=== PATIENT | male | born 1970 | race Caucasian/White ===

== ENCOUNTER 2017-01-23 17:24 | Emergency (ER) | payer SELFPAY ==
--- NOTE | 2017-01-23 17:39 | DR.CP ---
HPI - Time Seen Time seen: 15:30 - PCP Primary Care Physician: SHAMIKA, - Complaint Chief Complaint Doctor Comments: I agree with statement. Patient with a strong family history of heart disease on mothers side. 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 He reports that he had mid sternal chest pain on yesterday w/o radiation or diaphoresis. Sharp and constant. He had no NTG and took ASA. Chief Complaint:: PT C/O CHEST PAINS THAT STARTED LAST NIGHT AND PT STATES THAT IT IS CONSTANT SHARP PAINS.. - Source History Provided: Patient - Mode of Arrival Mode of Arrival: Ambulatory - Timing Onset of Chief Complaint: 01/22/17 PMH - PMH Past Medical History: Yes Past Medical History: [place] Past Surgical History: Yes Surgical History: Angioplasty/Stents - Family History History of Family Medical Conditions: No Family Medical History: Diabetes Mellitus, [place], Coronary Artery Disease, Hypertension - Social History Does patient currently use any type of tobacco product: Yes Have you used tobacco products in the last 12 months: Yes Type of Tobacco Use: Cigarettes How many years tobacco product used: 32 Does any household member use tobacco: No Alcohol Use: None Do you use any recreational Drugs:: No Lives With: Family - infectious screening In the last 2 months have you had wt loss of >10#?: NO Have you had fever, night sweats or hemotysis?: No Have you traveled outside the country in the last 6 months?: No Isolation: Standard ROS - Review of Systems Eyes: No Symptoms Reported ENTM: No Symptoms Reported Respiratoy: No Symptoms Reported Cardiovascular: No Symptoms Reported Gastrointestinal/Abdominal: No Symptoms Reported Genitourinary: No Symptoms Reported Neurological: No Symptoms Reported Musculoskeletal: No Symptoms Reported Integumentary: No Symptoms Reported Hematologic/Lymphatic: No Symptoms Reported Endocrine: No Symptoms Reported Psychiatric: No Symptoms Reported All Other Systems: Reviewed and Negative PE - Vitals Vitals: Temperature 98.2 F Pulse Rate [Left Brachial] 100 Pulse Rate 93 Respiratory Rate 18 Blood Pressure [Left Arm] 137/87 Blood Pressure 125/79 O2 Sat by Pulse Oximetry 98 - General Limitations: No Limitations General Appearance: Alert, In No Apparent Distress - Head Head Exam: Normal Inspection, Atraumatic - Eyes Eye exam: Normal Appearance, PERRL, EOMI - ENT ENT Exam: Normal Exam - Chest Chest Inspection: Normal Inspection - Respiratory Respiratory Exam: Normal Lung Sounds Bilat Respiratory Exam: Bilateral Clear to Auscultation - Cardiovascular Cardiovascular Exam: Regular Rate, Normal Rhythm Pulse: Normal - Abdominal Exam Abdominal Exam: Normal Inspection, Normal Bowel Sounds, Soft Abdominal Tenderness: negative: RUQ, RLQ, LUQ, LLQ, Epigastrium, Suprapubic, Diffuse, Mild, Moderate, Severe, Other - Extremities Extremities Exam: Normal Inspection - Back Back Exam: Normal Inspection, Full ROM - Neurologic Neurological Exam: Alert, Oriented X3, CN II-XII Intact - Psychiatric Psychiatric Exam: Normal Affect - Skin Skin Exam: Warm, Dry, Intact Course - Reevaluation 1st: Improved ROR - Labs Reviewed Result Diagrams: 01/23/17 17:40 01/23/17 17:40 Laboratory: WBC 10.5 X10^3/uL (3.6-10.0) H 01/23/17 17:40 RBC 5.54 X10^6/uL (4.7-6.0) 01/23/17 17:40 Hgb 17.1 g/dL (13.5-18.0) 01/23/17 17:40 Hct 48.8 % (42.0-54.0) 01/23/17 17:40 MCV 88.1 fL (80.0-100.0) 01/23/17 17:40 MCH 30.9 pg (27.0-34.0) 01/23/17 17:40 MCHC 35.1 g/dL (33.0-35.0) H 01/23/17 17:40 RDW 15.6 % (11.6-16.5) 01/23/17 17:40 Plt Count 265 X10^3/uL (150.0-450.0) 01/23/17 17:40 MPV 8.4 fL (7.4-11.0) 01/23/17 17:40 Neut % 52.7 % (42.0-75.0) 01/23/17 17:40 Lymph % 38.7 % (21.0-51.0) 01/23/17 17:40 Lipscomb % 4.3 % (0.0-13.0) 01/23/17 17:40 Eos % 3.2 % (0.9-2.9) H 01/23/17 17:40 Baso % 1.1 % (0.2-1.0) H 01/23/17 17:40 Neut # 5.5 x10^3/uL (2.2-4.8) H 01/23/17 17:40 Lymph # 4.0 X10^3/uL (1.3-2.9) H 01/23/17 17:40 Lipscomb # 0.4 x10^3/uL (0.3-0.8) 01/23/17 17:40 Eos # 0.3 x10^3/uL (0.0-0.2) H 01/23/17 17:40 Baso # 0.1 X10^3/uL (0.0-0.1) 01/23/17 17:40 Absolute Nucleated RBC 0.0 /100WBC 01/23/17 17:40 Sodium 139 mmol/L (136-145) 01/23/17 17:40 Corrected Sodium TNP 01/23/17 17:40 Potassium 4.3 mmol/L (3.5-5.1) 01/23/17 17:40 Chloride 105 mmol/L (98-107) 01/23/17 17:40 Carbon Dioxide 29.1 mmol/L (21-32) 01/23/17 17:40 BUN 12 mg/dL (7-18) 01/23/17 17:40 Creatinine 1.34 mg/dL (0.70-1.30) H 01/23/17 17:40 Est GFR (MDRD) Af Amer > 60 (>60) 01/23/17 17:40 Est GFR (MDRD) Non-Af > 60 (>60) 01/23/17 17:40 Glucose 104 mg/dL (65-99) H 01/23/17 17:40 Calcium 9.2 mg/dL (8.5-10.1) 01/23/17 17:40 Corrected Calcium TNP 01/23/17 17:40 Magnesium 1.6 mg/dL (1.7-2.9) L 01/23/17 17:40 Total Bilirubin 0.20 mg/dL (0.2-1.0) 01/23/17 17:40 AST 16 Units/L (15-37) 01/23/17 17:40 ALT 32 Units/L (12-78) 01/23/17 17:40 Alkaline Phosphatase 76 Units/L (46-116) 01/23/17 17:40 Creatine Kinase 131 Units/L (39-308) 01/23/17 17:40 CK-MB (CK-2) < 1.0 ng/mL (0-4.0) 01/23/17 17:40 CK/CKMB % Calc 0.8 % (<4) 01/23/17 17:40 Troponin I < 0.02 ng/mL (0-1.5) 01/23/17 17:40 Total Protein 8.2 g/dL (6.4-8.2) 01/23/17 17:40 Albumin 4.1 g/dL (3.4-5.0) 01/23/17 17:40 Globulin 4.1 g/dL (2.5-4.5) 01/23/17 17:40 Albumin/Globulin Ratio 1.0 Ratio (1.1-2.1) L 01/23/17 17:40 - XRAY XRAY Interpreted by: Radiologist (Chest: There is poorly defined asymmetric opacities within the right lung base, which could represent atelectasis vs early pneumonia. The lungs are otherwise clear, and no pneumothorax or pleural effusion is present. There no cardiomegaly. Bipolar implanted pacemaker noted. No acute skeletal abnormality is identified.) - EKG Rate: 91 [place]: Normal Rhythm: NSR Hypertrophy: LAE - Diagnosis Discharge Problem: Chest pain Qualifiers: Chest pain type: unspecified Qualified Code(s): R07.9 - Chest pain, unspecified Chest pain Qualifiers: Chest pain type: unspecified Qualified Code(s): R07.9 - Chest pain, unspecified - Discharge Plan Condition: Stable - Follow ups/Referrals Follow ups/Referrals: NFD,None [Primary Care Provider] - 3 days - Instructions
[2017-01-23] MEDS: NITROSTAT SL PRN ×3 (17:45→18:03)
[2017-01-23 17:50] LABS: BASOPHILS # (AUTO) 0.1 X10^3/uL (0.0-0.1); BASOPHILS % (AUTO) 1.1 % (0.2-1.0); EOSINOPHILS # (AUTO) 0.3 x10^3/uL (0.0-0.2); EOSINOPHILS % (AUTO) 3.2 % (0.9-2.9); HEMATOCRIT 48.8 % (42.0-54.0); HEMOGLOBIN 17.1 g/dL (13.5-18.0); LYMPHOCYTES % (AUTO) 38.7 % (21.0-51.0); MEAN CORPUSCULAR HEMOGLOBIN 30.9 pg (27.0-34.0); MEAN CORPUSCULAR HGB CONC 35.1 g/dL (33.0-35.0); MEAN CORPUSCULAR VOLUME 88.1 fL (80.0-100.0); MEAN PLATELET VOLUME 8.4 fL (7.4-11.0); MONOCYTES # (AUTO) 0.4 x10^3/uL (0.3-0.8); MONOCYTES % (AUTO) 4.3 % (0.0-13.0); NEUTROPHILS # (AUTO) 5.5 x10^3/uL (2.2-4.8); NEUTROPHILS % (AUTO) 52.7 % (42.0-75.0); PLATELET COUNT 265 X10^3/uL (150.0-450.0); RED BLOOD COUNT 5.54 X10^6/uL (4.7-6.0); RED CELL DISTRIBUTION WIDTH 15.6 % (11.6-16.5); WHITE BLOOD COUNT 10.5 X10^3/uL (3.6-10.0)
--- NOTE | 2017-01-23 17:50 | RAD ---
Single view chest series: Indication: Chest pain. Comparison: None available. Findings/impression: There poorly defined, asymmetric opacities within the right lung base, which co uld represent atelectasis versus early pneumonia. The lungs are otherwise clear, and no pneumothorax or pleural effusion is present. There is no cardiomegaly. Bipolar implanted pacemaker noted. No acu te skeletal abnormality is identified. Reported By:
[2017-01-23] MEDS ORDERED: NS 1000 ML 1,000 ML IV SCH (18:00)
[2017-01-23 18:09] LABS: BLOOD UREA NITROGEN 12 mg/dL (7-18); CALCIUM 9.2 mg/dL (8.5-10.1); CARBON DIOXIDE 29.1 mmol/L (21-32); CHLORIDE 105 mmol/L (98-107); CREATININE 1.34 mg/dL (0.70-1.30); GLUCOSE 104 mg/dL (65-99); SODIUM 139 mmol/L (136-145); TROPONIN I < 0.02 ng/mL (0-1.5); eGFR BLACK RACES > 60 (>60); eGFR NON BLACK RACES > 60 (>60)
[2017-01-23 18:13] LABS: ALANINE AMINOTRANSFERASE 32 Units/L (12-78); ALBUMIN 4.1 g/dL (3.4-5.0); ALKALINE PHOSPHATASE 76 Units/L (46-116); ASPARTATE AMINO TRANSFERASE 16 Units/L (15-37); CREATINE KINASE 131 Units/L (39-308); MAGNESIUM 1.6 mg/dL (1.7-2.9); TOTAL PROTEIN 8.2 g/dL (6.4-8.2)
[2017-01-23 18:18] VITALS: BP 137/87
[2017-01-23] MEDS ORDERED: NS 1000 ML 1,000 ML ONE (18:18)
[2017-01-23] MEDS ORDERED: MORPHINE SULFATE INJ 4 MG IVP ONE (18:23)
[2017-01-23] MEDS ORDERED: MORPHINE SULFATE INJ 4 MG ONE (18:28)
[2017-01-23 18:45] LABS: CREATINE KINASE MB < 1.0 ng/mL (0-4.0)
[2017-01-23 18:46] LABS: CKMB % 0.8 % (<4)
[2017-01-23 19:47] LABS: BILIRUBIN,URINE NEGATIVE (NEGATIVE); BLOOD/HEMOGLOBIN,URINE 1+ (NEGATIVE); GLUCOSE, URINE NEGATIVE (NEGATIVE); KETONES,URINE NEGATIVE (NEGATIVE); LEUKOCYTE ESTERASE ,URINE NEGATIVE (NEGATIVE); NITRITES,URINE NEGATIVE (NEGATIVE); PROTEIN,URINE NEGATIVE (NEGATIVE); UROBILINOGEN,URINE NORMAL (NORMAL)
[2017-01-23 20:06] LABS: APPEARANCE,URINE CLEAR (CLEAR); COLOR,URINE YELLOW (YELLOW); RBC,URINE 0-2 /HPF (NEGATIVE)
[2017-01-23 20:07] LABS: BACTERIA,URINE NEGATIVE /HPF (NEGATIVE); SQUAMOUS EPITHELIAL CELL,UR RARE /HPF (NEGATIVE)
== END 2017-01-23 20:03 | disposition home or self-care (01) ==
LOC: ER 17:30
DX: R07.89 Other chest pain (principal)
CPT/HCPCS: 36415; 71010; 80053; 81001; 82550; 82553; 83735; 84484; 85025; 93005; 93010; 96365; 96367; 96374; 99283; A4222; J2270